=== PATIENT | female | born 1960 | race Caucasian/White ===

== ENCOUNTER 2020-05-15 15:57 | Emergency (ER) | payer BC ==
[~2020-05-15] VITALS: Ht 157.5 cm; Wt 91.4 kg
[2020-05-15] MEDS ORDERED: IOHEXOL 300 MG/ML 75 ML VIAL. IV ONE (17:00)
[2020-05-15 17:19] LABS: BASO # 0.2 x10^3/uL (0.0-0.2); BASO % 1 % (0-3); EOS % 0 % (0-3); HEMATOCRIT 45.6 % (36.0-47.0); LYMPH # 1.3 x10^3/uL (1.0-4.8); LYMPH % 8 % (24-48); MEAN CORPUSCULAR HEMOGLOBIN 29 pg (25-35); MEAN CORPUSCULAR HGB CONC 33 g/dL (31-37); MEAN CORPUSCULAR VOLUME 89 fL (79-100); MONO # 0.9 x10^3/uL (0.0-1.1); MONO % 6 % (0-9); NEUT # 13.5 x10^3uL (1.8-7.7); NEUT % 85 % (31-73); PLATELET COUNT 224 x10^3/uL (140-400); RED CELL DISTRIBUTION WIDTH 22.9 % (11.5-14.5)
--- NOTE | 2020-05-15 17:36 | RAD ---
Exam: CT of abdomen and pelvis with contrast INDICATION: Abdominal and back pain TECHNIQUE: Sequential axial images through the abdomen and pelvis obtained following the administration of 75 mL of Omni 300 IV contrast. Sagittal and coronal reformatted images were reconstructed from the axial data and reviewed. Comparisons: None FINDINGS: Heart size is normal. No pericardial effusion. Visualized lung bases are clear. Pleural effusion. Liver, spleen, and adrenals are unremarkable. There is a moderate-sized hiatal hernia which contains portions of the pancreas. Gallbladder is distended without adjacent inflammatory changes. Kidneys demonstrate symmetric enhancement. No ureteral calculi.. Nonobstructing 2 mm calculus at the mid right kidney. Bladder is decompressed not well evaluated. Uterus is absent. No abnormal adnexal mass. Inflammatory changes surrounding the sigmoid colon in an area of diverticulosis with a small adjacent contained perforation with air-fluid collection measuring approximately 4.0 x 2.5 cm in transverse dimension. Remainder of the large and small bowel are unremarkable. No free intra-abdominal air. Trace free fluid noted in the pelvis. Abdominal aorta has a normal course and caliber. Abdominal vasculature is patent. No enlarged abdominal lymph nodes are identified. No suspicious osseous lesions or acute fractures. IMPRESSION: 1. Findings of acute diverticulitis with a focal contained perforation adjacent to the sigmoid colon measuring approximately 4.0 x 2.5 cm. Follow-up colonoscopy posttreatment to ensure no underlying neoplasm is recommended. 2. Moderate-sized hiatal hernia which contains portions of the pancreas. No surrounding inflammatory changes are identified. 3. Gallbladder is distended without adjacent inflammatory changes. Correlate with symptomatology to determine the need for further evaluation with ultrasound. 4. Right-sided nephrolithiasis. Exposure: One or more of the following in the visualized dose reduction techniques were utilized for this examination: 1. Automated exposure control 2. Adjustment of the MA and/or KV according to patient size 3. Use of iterative of reconstructive technique Electronically signed by: Angelo Hernandez MD (05/15/2020 5:33 PM) [facility]
[2020-05-15 17:37] LABS: BILIRUBIN,URINE NEG (NEG); CLARITY,URINE CLEAR; COLOR,URINE YELLOW; GLUCOSE,URINE NEG (NEG)
[2020-05-15 17:38] LABS: BACTERIA,URINE 0 /HPF (0-FEW); NITRITE,URINE NEG (NEG); RBC,URINE 0 /HPF (0-2); UROBILINOGEN,URINE 0.2 mg/dL (0.2 mg/dL); WBC,URINE 0 /HPF (0-4)
[2020-05-15 17:44] LABS: AMPHETAMINE/METHAMPHETAMINE NEG (NEG); BARBITURATES NEG (NEG); BENZODIAZEPINES NEG (NEG); CALCIUM 9.2 mg/dL (8.5-10.1); CANNABINOIDS POS (NEG); COCAINE NEG (NEG); CREATININE 0.8 mg/dL (0.6-1.0); GFR 73.4; METHADONE NEG (NEG); OPIATES NEG (NEG); PHENCYCLIDINE NEG (NEG); POTASSIUM 4.1 mmol/L (3.5-5.1)
[2020-05-15 17:48] LABS: ALBUMIN 3.7 g/dL (3.4-5.0); DIRECT BILIRUBIN 0.2 mg/dL (0.0-0.2); TOTAL BILIRUBIN 0.5 mg/dL (0.2-1.0); TOTAL PROTEIN 7.5 g/dL (6.4-8.2)
--- NOTE | 2020-05-15 17:52 | PHYS DOC ---
General Adult EDM: Chief Complaint: ABDOMINAL PAIN HPI: HPI: 59 yo F PMH rheumatoid arthritis (on prednisone 10mg qdaily and enbrel), barretts esophagus, hiatal hernia, obesity and h/o gastric bleed 06/2019 requiring transfusion 2/2 anemia, presents to the ed with w/o LLQ pain and suprapubic pain with associated nbnb vomiting. Reports UGI and LGI with [facility] 1 month ago that showed 3 polyps, 2 were pre-cancerous. PSH-partial hysterectom and breast reduction. Review of Systems: Review of Systems: Constitutional: Denies fever or chills Eyes: Denies change in visual acuity HENT: Denies nasal congestion or sore throat Respiratory: Denies cough or shortness of breath Cardiovascular: Denies chest pain or edema GI: Denies abdominal pain, nausea, vomiting, bloody stools or diarrhea : Denies dysuria Musculoskeletal: Denies back pain or joint pain Integument: Denies rash Neurologic: Denies headache, focal weakness or sensory changes Endocrine: Denies polyuria or polydipsia Lymphatic: Denies swollen glands Psychiatric: Denies depression or anxiety Heart Score: Risk Factors: Risk Factors: DM, Current or recent (<one month) smoker, HTN, HLP, family history of CAD, obesity. Risk Scores: Score 0 - 3: 2.5% MACE over next 6 weeks - Discharge Home Score 4 - 6: 20.3% MACE over next 6 weeks - Admit for Clinical Observation Score 7 - 10: 72.7% MACE over next 6 weeks - Early Invasive Strategies Current Medications: Current Meds: Current Medications Medications (Trade) Dose Ordered Sig/Ben Start Time Stop Time Status Last Admin Dose Admin Iohexol (Omnipaque 300 Mg/ml) 75 ml 1X ONCE 05/15/20 17:00 05/15/20 17:01 DC 05/15/20 17:06 75 ML Allergies: Allergies: Allergies Coded Allergies Type Severity Reaction Last Updated Verified abatacept Allergy Unknown 05/15/20 Yes Physical Exam: PE: Constitutional: Well developed, well nourished, uncomfortable/in pain HENT: Normocephalic, atraumatic, Eyes: , EOMI, conjunctiva normal, no discharge. [] Neck: Normal range of motion, supple, no stridor. [] Cardiovascular:Heart rate regular rhythm, no murmur [] Lungs & Thorax: Bilateral breath sounds clear to auscultation [] Abdomen: Bowel sounds normal, soft, +llq ttp, no masses, no pulsatile masses. [] Skin: Warm, dry, no erythema, no rash. [] Back: No tenderness, no CVA tenderness. [] Extremities: No tenderness, no cyanosis, no clubbing, ROM intact, Neurologic: Alert and oriented X 3, normal motor function, normal sensory func tion, no focal deficits noted. [] Psychologic: Affect normal, judgement normal, mood normal. [] Current Patient Data: Labs: Laboratory Tests Test 05/15/20 17:00 White Blood Count 16.0 x10^3/uL (4.0-11.0) H Red Blood Count 5.10 x10^6/uL (3.50-5.40) Hemoglobin 15.0 g/dL (12.0-15.5) Hematocrit 45.6 % (36.0-47.0) Mean Corpuscular Volume 89 fL (79-100) Mean Corpuscular Hemoglobin 29 pg (25-35) Mean Corpuscular Hemoglobin Concent 33 g/dL (31-37) Red Cell Distribution Width 22.9 % (11.5-14.5) H Platelet Count 224 x10^3/uL (140-400) Neutrophils (%) (Auto) 85 % (31-73) H Lymphocytes (%) (Auto) 8 % (24-48) L Monocytes (%) (Auto) 6 % (0-9) Eosinophils (%) (Auto) 0 % (0-3) Basophils (%) (Auto) 1 % (0-3) Neutrophils # (Auto) 13.5 x10^3uL (1.8-7.7) H Lymphocytes # (Auto) 1.3 x10^3/uL (1.0-4.8) Monocytes # (Auto) 0.9 x10^3/uL (0.0-1.1) Eosinophils # (Auto) 0.0 x10^3/uL (0.0-0.7) Basophils # (Auto) 0.2 x10^3/uL (0.0-0.2) Platelet Estimate Pending Urine Collection Type Unknown Urine Color Yellow Urine Clarity Clear Urine pH 6.5 Urine Specific [place] 1.020 Urine Protein Neg (NEG-TRACE) Urine Glucose (UA) Neg mg/dL (NEG) Urine Ketones (Stick) >=160 mg/dL (NEG) Urine Blood Neg (NEG) Urine Nitrite Neg (NEG) Urine Bilirubin Neg (NEG) Urine Urobilinogen Dipstick 0.2 mg/dL (0.2 mg/dL) Urine Leukocyte Esterase Neg (NEG) Urine RBC 0 /HPF (0-2) Urine WBC 0 /HPF (0-4) Urine Squamous Epithelial Cells None /LPF Urine Bacteria 0 /HPF (0-FEW) Sodium Level 138 mmol/L (136-145) Potassium Level 4.1 mmol/L (3.5-5.1) Chloride Level 102 mmol/L (98-107) Carbon Dioxide Level 26 mmol/L (21-32) Anion Gap 10 (6-14) Blood Urea Nitrogen 11 mg/dL (7-20) Creatinine 0.8 mg/dL (0.6-1.0) Estimated GFR (Cockcroft-Gault) 73.4 Glucose Level 112 mg/dL (70-99) H Calcium Level 9.2 mg/dL (8.5-10.1) Magnesium Level 2.0 mg/dL (1.8-2.4) Total Bilirubin 0.5 mg/dL (0.2-1.0) Direct Bilirubin 0.2 mg/dL (0.0-0.2) Aspartate Amino Transferase (AST) 17 U/L (15-37) Alanine Aminotransferase (ALT) 25 U/L (14-59) Alkaline Phosphatase 80 U/L (46-116) Creatine Kinase 44 U/L (26-192) Troponin I Quantitative < 0.017 ng/mL (0-0.055) XG-Xfm-A-Type Natriuretic Peptide 126 pg/mL (0-124) H Total Protein 7.5 g/dL (6.4-8.2) Albumin 3.7 g/dL (3.4-5.0) Lipase 40 U/L (73-393) L Urine Opiates Screen Neg (NEG) Urine Methadone Screen Neg (NEG) Urine Barbiturates Neg (NEG) Urine Phencyclidine Screen Neg (NEG) Urine Amphetamine/Methamphetamine Neg (NEG) Urine Benzodiazepines Screen Neg (NEG) Urine Cocaine Screen Neg (NEG) Urine Cannabinoids Screen Pos (NEG) Urine Ethyl Alcohol Neg (NEG) EKG: EKG: sinus rhythm at 91bpm, LAD, normal intervals, TWI III, No JIM/STD Radiology/Procedures: Radiology/Procedures: []IMAGING REPORT Signed PATIENT: DAE MORAN AACCOUNT: [id number] : 1960 LOCATION: ER AGE: 59 SEX: F EXAM STATUS: REG ER ORD. PHYSICIAN: POWER DALAL DO REASON: abd and back pain PROCEDURE: CT ABD PELV W/ IV CONTRST ONLY Exam: CT of abdomen and pelvis with contrast INDICATION: Abdominal and back pain TECHNIQUE: Sequential axial images through the abdomen and pelvis obtained following the administration of 75 mL of Omni 300 IV contrast. Sagittal and coronal reformatted images were reconstructed from the axial data and reviewed. Comparisons: None FINDINGS: Heart size is normal. No pericardial effusion. Visualized lung bases are clear. Pleural effusion. Liver, spleen, and adrenals are unremarkable. There is a moderate-sized hiatal hernia which contains portions of the pancreas. Gallbladder is distended without adjacent inflammatory changes. Kidneys demonstrate symmetric enhancement. No ureteral calculi.. Nonobstructing 2 mm calculus at the mid right kidney. Bladder is decompressed not well evaluated. Uterus is absent. No abnormal adnexal mass. Inflammatory changes surrounding the sigmoid colon in an area of diverticulosis with a small adjacent contained perforation with air-fluid collection measuring approximately 4.0 x 2.5 cm in transverse dimension. Remainder of the large and small bowel are unremarkable. No free intra-abdominal air. Trace free fluid noted in the pelvis. Abdominal aorta has a normal course and caliber. Abdominal vasculature is patent. No enlarged abdominal lymph nodes are identified. No suspicious osseous lesions or acute fractures. IMPRESSION: 1. Findings of acute diverticulitis with a focal contained perforation adjacent to the sigmoid colon measuring approximately 4.0 x 2.5 cm. Follow-up colonoscopy posttreatment to ensure no underlying neoplasm is recommended. 2. Moderate-sized hiatal hernia which contains portions of the pancreas. No surrounding inflammatory changes are identified. 3. Gallbladder is distended without adjacent inflammatory changes. Correlate with symptomatology to determine the need for further evaluation with ultrasound. 4. Right-sided nephrolithiasis. Exposure: One or more of the following in the visualized dose reduction techniques were utilized for this examination: 1. Automated exposure control 2. Adjustment of the MA and/or KV according to patient size 3. Use of iterative of reconstructive technique Electronically signed by: Angelo Hernandez MD (05/15/2020 5:33 PM) [facility] Course & Med Decision Making: Course & Med Decision Making Pertinent Labs and Imaging studies reviewed. (See chart for details) Concern for acute complicated diverticulitis w/perforation, nephrolithiasis and hiatal hernia -spoke with Dr. Nolasco, surgery who recommends IV fluids, n.p.o. and antibiotics, likely not a surgical candidate. With undifferentiated leukocytosis, 1 band, no lactic acidosis, meets sirs. Accepted transfer by Dr. Martinez to [facility]. Patient stable at time of transfer and agrees with this plan. Dragon Disclaimer: Dragon Disclaimer: This electronic medical record was generated, in whole or in part, using a voice recognition dictation system. Departure Departure: Impression: Primary Impression: Acute diverticulitis Additional Impression: Perforated bowel Disposition: 05 TRANSFER OTHER ([facility], Dr. Martinez) Condition: GUARDED Referrals: NEREIDA ZAMORANO MD (PCP) POWER DALAL DO May 15, 2020 17:52
[2020-05-15] MEDS ORDERED: PIPERACILLIN/TAZOBACTAM 4.5 GM VIAL IV ONE (17:59)
[2020-05-15] MEDS ORDERED: IV NORMAL SALINE 50ML 50 ML ONE (17:59)
[2020-05-15] MEDS ORDERED: PIPERACILLIN/TAZOBACTAM 4.5 GM in IV NORMAL SALINE 50ML 50 ML IV ONE (18:00)
[2020-05-15] MEDS ORDERED: HYDROmorphone PF 1 MG/ML DISP.SYRIN ONE (18:00)
[2020-05-15] MEDS ORDERED: HYDROmorphone PF 1 MG/ML DISP.SYRIN IVP ONE (18:30)
[2020-05-15] MEDS ORDERED: IV NORMAL SALINE 1,000ML 1,000 ML IV ONE ×2 (18:30)
[2020-05-15 18:53] LABS: % BANDS 1 % (0-9); % LYMPHS 11 % (24-48); % MONOS 3 % (0-10); % SEGS 85 % (35-66); PLT ESTIMATE ADEQUATE (ADEQUATE)
[2020-05-15 18:54] LABS: ANISOCYTOSIS MOD
[2020-05-15 20:10] VITALS: BP 111/43
--- NOTE | 2020-05-15 23:44 | EKG ---
[address] [address] Test Date: 2020-05-15 Test Time: 17:59:21 Pat Name: DAE MORAN Department: Room: Gender: F Gymnastics Coach Or Instructor: : 1960 Requested By: POWER DALAL Order Number: [id number] Reading MD: Measurements Intervals [place] Rate: 91 P: 32 [place]: 138 QRS: -6 QRSD: 90 T: 22 QT: 350 QTc: 432 Interpretive Statements SINUS RHYTHM LEFTWARD AXIS OTHERWISE NORMAL ECG RI6.02 No previous ECG available for comparison
== END 2020-05-15 20:17 | disposition short-term general hospital (02) ==
LOC: ER 15:57
DX: K57.32 Diverticulitis of large intestine without perforation or abscess without bleeding (principal); K63.1 Perforation of intestine (nontraumatic); Z88.8 Allergy status to other drugs, medicaments and biological substances
CPT/HCPCS: 36415; 74177; 80048; 80076; 80307; 81001; 82550; 83605; 83690; 83735; 83880; 84484; 85007; 85025; 87040; 93005; 96365; 96375; 99285; J1170; J2543; J7030; Q9967